=== PATIENT | male | born 1955 | race Caucasian/White ===

== ENCOUNTER 2019-08-04 13:23 | Outpatient (CLI) | payer MEDICARE, SELFPAY ==
[2019-08-04 13:39] LABS: Hematocrit 45.5 % (37.0-46.0); Hemoglobin 15.8 g/dL (12.4-15.3); Mean Corpuscular HGB Conc 34.7 g/dL (32.0-36.0); Mean Corpuscular Hemoglobin 31.2 pg (27.0-31.0); Mean Corpuscular Volume 89.9 fL (78.0-102.0); Platelet Count Result 259 K/mm3 (150-420); Red Blood Count 5.06 M/mm3 (4.70-6.10); Red Cell Distribution Width 12.9 % (11.6-14.4); White Blood Count 7.9 K/mm3 (4.8-10.8)
[2019-08-04 14:42] LABS: Anion Gap 11.5 mmol/L (7-16); Blood Urea Nitrogen 21 mg/dL (7-18); Carbon Dioxide 28 mmol/L (21-32); Chloride 105 mmol/L (98-108); Estimated Glomerular Filt Rate > 60; Glucose 75 mg/dL (70-99); Osmolality Calculated 292 mOsm/kg (285-295); Potassium 4.5 mmol/L (3.5-5.1); Sodium 140 mmol/L (136-145)
[2019-08-04 14:43] LABS: Alanine Aminotransferase 25 U/L (16-63); Alkaline Phosphatase 82 U/L (46-116); Aspartate Amino Transferase 17 U/L (15-37); Bilirubin,Total 0.4 mg/dL (0.00-1.00); Calcium 9.5 mg/dL (8.5-10.1); Cholesterol 177 mg/dL (0-200); HDL Direct 58 mg/dL (40-60); LDL Cholesterol Calculated 102 mg/dL (<130); Triglycerides 86 mg/dL (0-150)
== END 2019-08-04 13:24 | disposition home or self-care (01) ==
LOC: CHSLAB 13:29
PROVIDERS: PCP Family Medicine; Visit Provider Family Medicine
DX: Z72.0 Tobacco use (principal); I25.10 Atherosclerotic heart disease of native coronary artery without angina pectoris
CPT/HCPCS: 36415; 80053; 80061; 85027

== ENCOUNTER 2021-10-10 10:59 | Outpatient (CLI) | payer MEDICARE, SELFPAY ==
--- NOTE | 2021-10-10 11:06 | ECG_ITS ---
Measurements Intervals [place] Rate: 58 P: 86 VA: 146 QRS: 82 QRSD: 117 T: 80 QT: 390 QTc: 384 Interpretive Statements SINUS BRADYCARDIA INCOMPLETE RIGHT BUNDLE BRANCH BLOCK BORDERLINE R WAVE PROGRESSION, ANTERIOR LEADS BASELINE ARTIFACT- I, II, III BORDERLINE ECG Electronically Signed On 10-10-2021 11:24:08 CDT by Carter Zimmer D.O.
[2021-10-10 11:19] LABS: Hematocrit 46.6 % (37.0-46.0); Hemoglobin 15.6 g/dL (12.4-15.3); Mean Corpuscular HGB Conc 33.5 g/dL (32.0-36.0); Mean Corpuscular Volume 92.5 fL (78.0-102.0); Mean Platelet Volume 9.4 fl (8.7-11.0); Platelet Count Result 283 K/mm3 (150-420); Red Blood Count 5.04 M/mm3 (4.70-6.10); White Blood Count 6.8 K/mm3 (4.8-10.8)
[2021-10-10 11:40] LABS: Alanine Aminotransferase 11 U/L (16-63); Albumin Level 3.8 g/dL (3.4-5.0); Alkaline Phosphatase 86 U/L (46-116); Anion Gap 7 mmol/L (8-16); Aspartate Amino Transferase 19 U/L (15-37); Bilirubin,Total 0.5 mg/dL (0.00-1.00); Blood Urea Nitrogen 17 mg/dL (7-18); Calcium 9.5 mg/dL (8.5-10.1); Carbon Dioxide 27 mmol/L (21-32); Chloride 104 mmol/L (98-108); Cholesterol 186 mg/dL (0-200); Estimated Glomerular Filt Rate > 60; Glucose 86 mg/dL (70-99); HDL Direct 65 mg/dL (40-60); LDL Cholesterol Calculated 105 mg/dL (<130); Osmolality Calculated 286 mOsm/kg (285-295); Potassium 4.2 mmol/L (3.5-5.1); Sodium 138 mmol/L (136-145); Total Protein 7.6 g/dL (6.4-8.2); Triglycerides 81 mg/dL (0-150)
== END 2021-10-10 11:00 | disposition home or self-care (01) ==
LOC: CHSLAB 11:06
PROVIDERS: PCP Family Medicine; Visit Provider Family Medicine
DX: Z01.818 Encounter for other preprocedural examination (principal); Z72.0 Tobacco use; Z13.6 Encounter for screening for cardiovascular disorders
CPT/HCPCS: 36415; 80053; 80061; 85027; 93005

== ENCOUNTER 2022-11-17 20:19 | Emergency (ER) | payer MEDICARE, SELFPAY ==
--- NOTE | ~2022-11-17 | XR_ITS ---
Clinical Indication: Dyspnea PA and lateral views of the chest: Comparison: None Findings: The lungs are clear, without evidence of focal consolidation or pleural effusion. COPD juan ramos present. Cardiomediastinal silhouette is within normal limits. Bones and soft tissues are unremar kable. Impression: COPD. Reviewed, dictated and finalized at location . Impression: COPD.
[2022-11-17 20:21] VITALS: BP 173/92; PULSE 69; RESP 16; TEMP 36.7; O2SAT 96
[2022-11-17 20:30] VITALS: PULSE 68; RESP 19; O2SAT 96
[2022-11-17 20:31] VITALS: O2SAT 95
--- NOTE | 2022-11-17 20:31 | ECG_ITS ---
Measurements Intervals [place] Rate: 65 P: 80 NE: 146 QRS: 55 QRSD: 109 T: 70 QT: 371 QTc: 387 Interpretive Statements SINUS RHYTHM INCOMPLETE RIGHT BUNDLE BRANCH BLOCK [90+ ms QRS DURATION, TERMINAL R IN V1/V2, 40+ ms S IN I/aVL/V4/V5/V6] Borderline ECG COMPARED TO ECG 10/10/2021 11:26:04 NO SIGNIFICANT CHANGE Electronically Signed On 11-18-2022 8:16:17 CDT by Tony Max M.D.
[2022-11-17 20:45] VITALS: PULSE 66; RESP 19; O2SAT 94
[2022-11-17 20:53] LABS: Basophils Absolute Auto 0.06 K/mm3 (0.00-0.10); Basophils Percent Auto 0.8 % (0.0-1.0); Eosinophils Absolute Auto 0.28 K/mm3 (0.02-0.50); Eosinophils Percent Auto 3.6 % (1.0-6.0); Hematocrit 42.2 % (37.0-46.0); Hemoglobin 14.5 g/dL (12.4-15.3); Immature Granulocyte Absolute 0.02 K/mm3 (0.00-0.00); Immature Granulocyte Percent A 0.3 % (0.0-0.0); Lymphocytes Absolute Auto 2.28 K/mm3 (1.10-4.50); Lymphocytes Percent Auto 29.6 % (18.0-42.0); Mean Corpuscular HGB Conc 34.4 g/dL (32.0-36.0); Mean Corpuscular Hemoglobin 30.9 pg (27.0-31.0); Mean Platelet Volume 9.4 fl (8.7-11.0); Monocytes Absolute Auto 0.54 K/mm3 (0.10-0.90); Neutrophils Absolute Auto 4.5 K/mm3 (1.7-7.2); Neutrophils Percent Auto 58.7 % (50.0-70.0); Platelet Count Result 257 K/mm3 (150-420); Red Blood Count 4.69 M/mm3 (4.70-6.10); Red Cell Distribution Width 12.9 % (11.6-14.4); White Blood Count 7.7 K/mm3 (4.8-10.8)
[2022-11-17 21:01] VITALS: BP 153/86; PULSE 69; RESP 18; O2SAT 94
[2022-11-17 21:08] LABS: D Dimer 0.27 mg/L (0.19-0.50)
--- NOTE | 2022-11-17 21:11 | ED.SOB ---
HPI - SOB/Dyspnea General Chief Complaint: Shortness of Breath/Dyspnea Stated Complaint: Sob Source: patient and family Mode of arrival: ambulatory Limitations: no limitations History of Present Illness HPI Narrative: this is a 67-year-old gentleman with no significant past medical history presents with some shortness of breath that occurred while he was outdoors on exertion with cough and initially was having some audible wheezing according to himself and family. Patient states that he has had some off and on shortness of breath for over a year, does smoke half a pack a cigarettes daily, denies chest pain no fever chills currently no shortness of breath no audible wheezing no abdominal pain no flank pain. 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 Family History Family History Mother Hypertension Heart disease Father , Age 70 Kidney disease Social History Social History Smoking packs per day: 1 Smoking cigarettes per day: 20.0 Years smoked: 50 Smoking pack-years: 50.00 Tobacco type: cigarettes Alcohol intake: former Substance use: never Living arrangements: with family Additional living arrangements comments: . 2 children Occupation/Education: retired Exam Const: General: no acute distress Nutritional Appearance: well nourished Limitations: no limitations HENMT: Head: normal to inspection Neck: Neck: normal visual inspection and no lymphadenopathy Chest: Chest palpation & inspection: normal inspection of the chest Resp: Effort & Inspection: normal respiratory effort Auscultation: diminished lung sounds Cardio: Rate: regular rate Rhythm: regular rhythm GI: GI Palp: Yes Soft to palpation Auscultation: normal bowel sounds Back/Spine/Pelvis: Back: no CVA tenderness Skin: General skin exam: normal color Rashes: no rashes Neuro: General: patient oriented x3 Speech: normal speech Extrem: General: normal to inspection Psych: Mental Status: mental status grossly normal Affect: normal affect Course Course Emergency Course: Patient had shortness of breath earlier with a coughing spell, currently is not short of breath no audible wheezing no fever chills blood pressure is elevated at 170 3/92 but patient and his state that he gets normal blood pressures at home. Labs reviewed with patient all within normal limits with a negative D-dimer negative troponin, EKG shows a incomplete right bundle branch block. Chest x-ray shows no acute intrapulmonary process although it does show hyperinflation with flattened diaphragm consistent with some emphysema. Vital Signs Vital signs: Vital Signs Temperature 36.7 C 11/17/22 20:21 Pulse Rate 69 11/17/22 20:21 Respiratory Rate 16 11/17/22 20:21 Blood Pressure 173/92 H 11/17/22 20:21 Pulse Oximetry 96 11/17/22 20:21 Oxygen Delivery Room Air 11/17/22 20:21 Temperature 36.7 C 11/17/22 20:21 Pulse Rate 68 11/17/22 20:30 Respiratory Rate 19 11/17/22 20:30 Blood Pressure 173/92 H 11/17/22 20:21 Pulse Oximetry 95 11/17/22 20:31 Oxygen Delivery Room Air 11/17/22 20:31 MDM - SOB/Dyspnea Lab Data 11/17/22 20:50 11/17/22 20:50 Labs: La
[2022-11-17 21:16] LABS: Alanine Aminotransferase 28 U/L (16-63); Albumin Level 3.6 g/dL (3.4-5.0); Alkaline Phosphatase 83 U/L (46-116); Anion Gap 9 mmol/L (8-16); Aspartate Amino Transferase 20 U/L (15-37); Bilirubin,Total 0.3 mg/dL (0.00-1.00); Blood Urea Nitrogen 21 mg/dL (7-18); Calcium 9.2 mg/dL (8.5-10.1); Carbon Dioxide 26 mmol/L (21-32); Chloride 104 mmol/L (98-108); Estimated CRCL calculation 57 ml/min; Estimated Glomerular Filt Rate > 60; Glucose 116 mg/dL (70-99); NT Pro B Type Natriuretic Pept 92 pg/mL (0-125); Osmolality Calculated 292 mOsm/kg (285-295); Potassium 4.1 mmol/L (3.5-5.1); Sodium 139 mmol/L (136-145); Total Protein 7.1 g/dL (6.4-8.2); Troponin I 10.1 ng/L (0.00-60.4)
== END 2022-11-17 21:35 | disposition home or self-care (01) ==
PROVIDERS: Emergency Provider Emergency Medicine; PCP Family Medicine
DX: R06.00 Dyspnea, unspecified (principal); F17.210 Nicotine dependence, cigarettes, uncomplicated
CPT/HCPCS: 36415; 71046; 80053; 83880; 84484; 85025; 85380; 93005; 99284

== ENCOUNTER 2023-10-24 09:50 | Observation (INO) | payer MEDICARE, SELFPAY ==
[2023-10-24] VITALS (13 sets, daily range): BP systolic 124–153; BP diastolic 73–90; PULSE 68–100; RESP 18–35; TEMP 35.8–37.1; O2SAT 91–99; BMI 21.4
--- NOTE | ~2023-10-24 | CT_ITS ---
EXAMINATION: CTA chest PE protocol DATE: 10/24/2023 12:34 INDICATION: Shortness of breath. Cough. TECHNIQUE: Computed tomography angiography (CTA) of the chest was performed with 100 mL Omnipaque-350 intravenous contrast timed to evaluate the pulmonary arteries. Coronal maximum intensity projection 3D-reconstructions were created by the technologist. Automated exposure control and iterative reconst ruction technique were employed. The dose-length product was 239.27 mGy-cm. COMPARISON: None. FINDINGS: There is severe emphysema. There are patchy airspace opacities and tree-in-bud opacities in all lobes, consistent with pneumonia. No pleural effusion. There is mild mediastinal and bilateral h ilar lymphadenopathy, likely reactive. The heart size is normal. No pericardial effusion. There is no pulmonary embolus. There is mild bilateral gynecomastia. There is mild thoracic spondylosis and alejandra re lumbar spondylosis. IMPRESSION: 1. No pulmonary embolus. 2. Multifocal pneumonia. 3. Severe emphysema. 4. Mild mediastinal and bilateral hilar lymphadenopathy, likely reactive. Reviewed, dictated and finalized at location A.
--- NOTE | ~2023-10-24 | XR_ITS ---
EXAMINATION: XR chest 1V portable DATE: 10/24/2023 10:35 INDICATION: Dyspnea on exertion. Cough. TECHNIQUE: A single frontal view of the chest was obtained. COMPARISON: Chest 2 views 11/17/2022 FINDINGS: There are lucencies in the lungs, consistent with emphysema. There are interstitial opaciti es in the mid and lower lung zones. No pleural effusion or pneumothorax. The heart size is normal. IMPRESSION: 1. Interstitial opacities in the mid and lower lung zones, consistent with mild pulmonary edema versu s atypical pneumonia superimposed on emphysema. Reviewed, dictated and finalized at location A. IMPRESSION: 1. Interstitial opacities in the mid and lower lung zones, consistent with mild pulmonary edema versus atypical pneumonia superimposed on emphysema.
--- NOTE | 2023-10-24 09:59 | ECG_ITS ---
[address] Test Date: 2023-10-24 Pat Name: Rush Mckinney Department: Room: Gender: M [employer] Machine [employer]er: : 1955 Requested By: Tony Lynch Order Number: [id number] Reading MD: Carter Zimmer D.O. Measurements Intervals [place] Rate: 98 P: 87 MA: 133 QRS: 85 QRSD: 102 T: 90 QT: 334 QTc: 426 Interpretive Statements SINUS RHYTHM POSSIBLE RIGHT ATRIAL ENLARGEMENT INCOMPLETE RIGHT BUNDLE BRANCH BLOCK BORDERLINE ST-T WAVE ABNORMALITY- INF/HIGH LAT LEADS BASELINE ARTIFACT- I, II, III, AVR, AVL, AVF, V1-V6 BORDERLINE ECG No previous ECG available for comparison Electronically Signed On 10-24-2023 11:21:46 CDT by Carter Zimmer D.O.
[2023-10-24] MEDS: IPRATROPIUM 0.5 MG/ALBUTEROL SULFATE 2.5 MG AMPUL.NEB 3 ML INHALATION ×2 (10:08→18:22)
[2023-10-24 10:28] LABS: Basophils Absolute Auto 0.04 K/mm3 (0.00-0.10); Basophils Percent Auto 0.4 % (0.0-1.0); Eosinophils Absolute Auto 0.12 K/mm3 (0.02-0.50); Eosinophils Percent Auto 1.1 % (1.0-6.0); Hematocrit 42.3 % (37.0-46.0); Hemoglobin 14.4 g/dL (12.4-15.3); Immature Granulocyte Absolute 0.05 K/mm3 (0.00-0.00); Immature Granulocyte Percent A 0.4 % (0.0-0.0); Lymphocytes Percent Auto 9.7 % (18.0-42.0); Mean Corpuscular Hemoglobin 30.1 pg (27.0-31.0); Mean Corpuscular Volume 88.3 fL (78.0-102.0); Mean Platelet Volume 9.6 fl (8.7-11.0); Monocytes Absolute Auto 1.31 K/mm3 (0.10-0.90); Monocytes Percent Auto 11.5 % (2.0-11.0); Neutrophils Absolute Auto 8.75 K/mm3 (1.70-7.20); Neutrophils Percent Auto 76.9 % (50.0-70.0); Platelet Count Result 256 K/mm3 (150-420); Red Blood Count 4.79 M/mm3 (4.70-6.10); Red Cell Distribution Width 12.4 % (11.6-14.4); White Blood Count 11.4 K/mm3 (4.8-10.8)
[2023-10-24] MEDS: methylPREDNISolone SOD SUCC 125 MG VIAL IV PUSH (10:39)
[2023-10-24 10:43] LABS: Partial Thromboplastin Time 27.2 Sec (23.9-30.70); Prothrombin Time 11.3 Seconds (9.50-12.1)
[2023-10-24 10:46] LABS: D Dimer 0.53 mg/L (0.19-0.50)
[2023-10-24 10:48] LABS: Lactic Acid Reflex 1.3 mmol/L (0.4-2.0)
[2023-10-24 10:50] LABS: Influenza A QL RT-PCR Negative (Negative); Influenza B QL RT-PCR Negative (Negative); RSV RNA, RT-PCR Negative (Negative); SARS-CoV-2 RNA PCR Negative (Negative)
[2023-10-24 10:57] LABS: Alanine Aminotransferase 22 U/L (16-63); Alkaline Phosphatase 85 U/L (46-116); Anion Gap 6 mmol/L (4-12); Aspartate Amino Transferase 19 U/L (15-37); Bilirubin,Total 0.9 mg/dL (0.00-1.00); Blood Urea Nitrogen 13 mg/dL (7-18); Calcium 9.3 mg/dL (8.5-10.1); Carbon Dioxide 30 mmol/L (21-32); Chloride 102 mmol/L (98-108); Estimated CRCL calculation 60 ml/min; Estimated Glomerular Filt Rate > 60; Glucose 109 mg/dL (70-99); Magnesium 2.1 mg/dL (1.8-2.4); NT Pro B Type Natriuretic Pept 114 pg/mL (0-125); Osmolality Calculated 287 mOsm/kg (285-295); Sodium 138 mmol/L (136-145); Total Protein 7.7 g/dL (6.4-8.2)
[2023-10-24] MEDS: ALPRAZolam (*CRX) 0.5 MG TABLET 1 MG PO (11:23)
--- NOTE | 2023-10-24 11:24 | PC.NURSE ---
PT HAS RETURNED FROM CT, UNABLE TO HAVE CT COMPLETED DUE TO ANXIETY. PT IS EXTREMELY ANXIOUS UPON RETURN. ERP AND RN AT BEDSIDE. PT HAS AGREED TO TAKING ANXIETY MEDICATION AND RE-ATTEMPTING THE SCAN. IS AT BEDSIDE. PT BEEN EXPLAINED THE BENEFITS AND RISKS OF THE EXAM. WILL CONTINUE TO MONITOR.
--- NOTE | 2023-10-24 12:15 | PC.NURSE ---
PT REPORTS HE IS MUCH MORE CALM AT THIS TIME AND IS WILLING TO ATTEMPT TO CT SCAN. RADIOLOGY NOTIFIED AT THIS TIME. AT BEDSIDE. VSS. PT DENIES ANY NEEDS OR COMPLAINTS. WILL CONTINUE TO MONITOR.
--- NOTE | 2023-10-24 12:43 | ED.SOB ---
HPI - SOB/Dyspnea General Chief Complaint: Shortness of Breath/Dyspnea Stated Complaint: cough and shortness of breath Time Seen by Provider: 10/24/23 09:52 Source: patient and family Mode of arrival: ambulatory Limitations: no limitations History of Present Illness HPI Narrative: this is a 68-year-old male with a history of COPD presents with shortness of breath over the last couple of days with a cough productive of yellow sputum, patient states that he has recently returned from a trip from [place] and developed this cough with shortness of breath with exertion. The patient has been having shortness of breath over the last couple of months with exertion, currently no fever chills O2 sats 93% on room air no chest pain no chest pressure no abdominal pain no fever chills, no nausea vomiting or dysuria. MD elicited complaint: shortness of breath and cough Pertinent past history: COPD Onset (ago): day(s) Context: recent illness Timing: constant Severity: moderate Exacerbating factors: movement Related Data Home Medications Medication Instructions Recorded Confirmed cetirizine 10 mg capsule (All Day 10 mg PO DAILY PRN Allergic 11/22/22 10/24/23 Allergy (cetirizine)) Symptoms Allergies Allergy/AdvReac Type Severity Reaction Status Date / Time Penicillins AdvReac Nausea Verified 10/24/23 09:58 Review of Systems Review of Systems: All systems reviewed & are unremarkable except as noted in HPI and below PMFSH Past Medical History Medical History 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 Family History Family History Mother Hypertension Heart disease Father , Age 70 Kidney disease Social History Social History Smoking packs per day: 1 Smoking cigarettes per day: 20.0 Years smoked: 50 Smoking pack-years: 50.00 Smoking status: Former smoker Tobacco type: cigarettes Alcohol intake: never Substance use: never Do You Feel Safe in your Home?: Yes Lack of Transportation: No Lack of Food: Never True Current Housing: I Have Housing Concerned About Future Housing: No Difficulty Paying Gas/Electric Bills: No Difficulty Paying for Meds: No Currently Unemployed: No Education: Associate Degree Difficulty w/ Childcare or Family Care: No Living arrangements: with family Additional living arrangements comments: . 2 children Occupation/Education: retired Spiritual care concerns: No Exam Const: General: healthy appearing, no acute distress and alert Nutritional Appearance: well nourished Orientation/consciousness: patient oriented x3 Limitations: no limitations HENMT: Head: normal to inspection Eyes: Conjunctivae: conjunctivae normal Chest: Chest palpation & inspection: normal inspection of the chest Resp: Effort & Inspection: normal respiratory effort Auscultation: diminished lung sounds Cardio: Rate: regular rate Rhythm: regular rhythm GI: GI Palp: Yes Soft to palpation Auscultation: normal bowel sounds Back/Spine/Pelvis: Back: no CVA tenderness Skin: General skin exam: normal color Rashes: no rashes Neuro: General: patient oriented x3, moves all extremities, no meningeal signs and no focal motor deficits Extrem: General: normal to inspection, no clubbing, cyanosis or edema and no pedal edema Course Course Emergency Course: Patient with shortness of breath received a dose of 125 Solu-Medrol IV and DuoNeb patient symptoms have improved, a chest x-ray performed shows some atypical pneumonia and patient had an elevated D-dimer and CTA was performed after the patient received 1mg p.o. is a an Axe for panic/anxiety a. Vital Signs V
[2023-10-24] MEDS: levoFLOXacin 500 MG/D5W 100 ML 500 MG/100 ML BAG 100 MG IVPB (13:16)
--- NOTE | 2023-10-24 13:21 | PC.NURSE ---
PT HAS BEEN ACCEPTED FOR ADMISSION TO ROOM 204. PT AND ARE AWARE AND AGREEABLE TO ADMISSION. IV MEDICATION INFUSING ORDERED WITHOUT DIFFICULTY. BELONGINGS LIST COMPLETED.
--- NOTE | 2023-10-24 13:45 | ADMGEN ---
This patient, Rush Mckinney Jr., was admitted to 2nd Floor Room 204-2. Patient/family oriented to hospital policies and general routines including ID bracelet, bed and alarms, visiting hours, pain management, procedures, bathroom and other care routines, personal items, smoking policy, room service/diet, and visiting hours. Information on how to activate the Rapid Response Team has been discussed. Patient/Family are encouraged to report perceived risks to care and to ask questions if they do not understand what they are told or what they should do.
[2023-10-24] MEDS: methylPREDNISolone SOD SUCC 125 MG VIAL 60 MG IV PUSH (20:24)
[2023-10-25] VITALS (11 sets, daily range): BP systolic 116–141; BP diastolic 74–81; PULSE 65–94; RESP 16–20; TEMP 36–36.6; O2SAT 92–98
[2023-10-25] MEDS: IPRATROPIUM 0.5 MG/ALBUTEROL SULFATE 2.5 MG AMPUL.NEB 3 ML INHALATION ×4 (00:11→18:14)
--- NOTE | 2023-10-25 00:17 | PC.NURSE ---
Pt awakened and has had numerous diaphoretic bouts tonight c clothes wet from sweating. His is in room at bedside tonight and states he has changed is shirt once. Some blankets removed from pt. Neb tx given as ordered, he reports feeling somewhat better and sleeping better tonight than at home over last 2 nocs. Pt tolerated tx well.
[2023-10-25 05:12] LABS: Basophils Absolute Auto 0.02 K/mm3 (0.00-0.10); Basophils Percent Auto 0.2 % (0.0-1.0); Hematocrit 37.3 % (37.0-46.0); Hemoglobin 12.6 g/dL (12.4-15.3); Immature Granulocyte Absolute 0.05 K/mm3 (0.00-0.00); Immature Granulocyte Percent A 0.4 % (0.0-0.0); Lymphocytes Absolute Auto 0.93 K/mm3 (1.10-4.50); Lymphocytes Percent Auto 7.8 % (18.0-42.0); Mean Corpuscular HGB Conc 33.8 g/dL (32-36); Mean Corpuscular Hemoglobin 29.2 pg (27.0-31.0); Mean Corpuscular Volume 86.3 fL (78.0-102.0); Mean Platelet Volume 9.6 fl (8.7-11.0); Monocytes Percent Auto 4.2 % (2.0-11.0); Neutrophils Absolute Auto 10.49 K/mm3 (1.70-7.20); Neutrophils Percent Auto 87.4 % (50.0-70.0); Platelet Count Result 268 K/mm3 (150-420); Red Blood Count 4.32 M/mm3 (4.70-6.10); Red Cell Distribution Width 12.4 % (11.6-14.4)
[2023-10-25 05:22] LABS: Anion Gap 13 mmol/L (4-12); Blood Urea Nitrogen 15 mg/dL (7-18); Calcium 9.5 mg/dL (8.5-10.1); Carbon Dioxide 25 mmol/L (21-32); Chloride 102 mmol/L (98-108); Estimated CRCL calculation 59 ml/min; Estimated Glomerular Filt Rate > 60; Glucose 237 mg/dL (70-99); Osmolality Calculated 298 mOsm/kg (285-295); Potassium 3.4 mmol/L (3.5-5.1); Sodium 140 mmol/L (136-145)
--- NOTE | 2023-10-25 07:42 | PM.IMHP ---
H&P: HPI History of Present Illness Date/Time: 10/25/23 07:42 Chief Complaint: Shortness of breath, productive cough Narrative: This is a very pleasant 68-year-old male with no significant past medical history other than history of smoking which he quit 1 year ago who presents to the ER with complaints of shortness of breath, weakness, and productive with green phlegm. The patient provides the following history, supplemented by his who is present. He states that he recently got home from [place] after a trip with his for their 50th anniversary and on his drive home he was very tired and having difficulty staying awake. He states he was having subjective fever and chills. He had a productive cough with green sputum and increasing shortness of breath. He states he had 2 amoxicillin doses at home from a previous mouth surgery. He took both of those tablets and was starting to feel better. The following day he was feeling worse and having severe shortness of breath with exertion so he presented to the ER. He states that he is an active josiah in usually works out at the gym a few times a week. He says that he can normally run 3 miles and 45 minutes on the treadmill and not get short of breath but then sometimes cannot carry a gallon of milk into the house without getting short of breath. His states that he has a follow-up appointment with Dr. Estrada oliveros scheduled for Saturday and they are hoping to speak with him about having pulmonary function test done to see if he has a diagnosis of COPD. He has had progressive shortness of breath over the last year. He has an albuterol inhaler at home which he has used this last week. In the ER labs were significant for a white count of 11, neutrophils 87.4, potassium 3.4, glucose 109, lactic 1.3, D-dimer 0.53, and upper respiratory panel negative. Due to elevated D-dimer patient had chest CTA which shows no pulmonary embolism and multifocal pneumonia with severe emphysema. There are also mild mediastinal and bilateral hilar lymphadenopathy likely reactive. Patient was started on IV steroids and Levaquin with nebulizers and admitted in this setting for treatment of pneumonia and probable COPD exacerbation. 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 Family History Family History Mother Hypertension Heart disease Father , Age 70 Kidney disease Social History Social History Smoking packs per day: 1 Smoking cigarettes per day: 20.0 Years smoked: 50 Smoking pack-years: 50.00 Smoking status: Former smoker Tobacco type: cigarettes Alcohol intake: never Substance use: never Do You Feel Safe in your Home?: Yes Lack of Transportation: No Lack of Food: Never True Current Housing: I Have Housing Concerned About Future Housing: No Difficulty Paying Gas/Electric Bills: No Difficulty Paying for Meds: No Currently Unemployed: No Education: Associate Degree Difficulty w/ Childcare or Family Care: No Living arrangements: with family Additional living arrangements comments: . 2 children Occupation/Education: retired Spiritual care concerns: No Meds Home Medications and Allergies Home Medications Medication Instructions Recorded Confirmed Type cetirizine 10 mg capsule (All Day 10 mg PO DAILY PRN Allergic 11/22/22 10/24/23 History Allergy (cetirizine)) Symptoms albuterol sulfate 90 mcg/actuation See Rx Instructions .Route 08/19/23 10/24/23 Rx aerosol inhaler .COMPLEX #7 ea
[2023-10-25] MEDS: POTASSIUM CHLORIDE 20 MEQ ER TABLET 40 MEQ PO (08:59)
[2023-10-25] MEDS: ENOXAPARIN 40 MG/0.4 ML SYRINGE SUB-Q (09:00)
[2023-10-25] MEDS: methylPREDNISolone SOD SUCC 125 MG VIAL 60 MG IV PUSH (09:01)
[2023-10-25] MEDS: levoFLOXacin 500 MG/D5W 100 ML 500 MG/100 ML BAG 100 MG IVPB (12:57)
[2023-10-25] MEDS: methylPREDNISolone SOD SUCC 125 MG VIAL 40 MG IV PUSH (21:43)
[2023-10-25] MEDS: guaiFENesin 12 HR 600 MG TABCR 1200 MG PO (21:43)
[2023-10-26] VITALS: BP 124/74; PULSE 88; RESP 16; TEMP 36.6; O2SAT 95
[2023-10-26 00:28] VITALS: PULSE 79; RESP 18; O2SAT 96
[2023-10-26] MEDS: IPRATROPIUM 0.5 MG/ALBUTEROL SULFATE 2.5 MG AMPUL.NEB 3 ML INHALATION ×2 (00:28→06:16)
[2023-10-26 00:36] VITALS: PULSE 79; RESP 18; O2SAT 96
[2023-10-26 05:54] LABS: Hematocrit 37.5 % (37.0-46.0); Hemoglobin 12.6 g/dL (12.4-15.3); Mean Corpuscular HGB Conc 33.6 g/dL (32-36); Mean Corpuscular Hemoglobin 29.4 pg (27.0-31.0); Mean Corpuscular Volume 87.6 fL (78.0-102.0); Mean Platelet Volume 9.8 fl (8.7-11.0); Platelet Count Result 314 K/mm3 (150-420); Red Blood Count 4.28 M/mm3 (4.70-6.10); Red Cell Distribution Width 12.8 % (11.6-14.4)
[2023-10-26 05:59] LABS: White Blood Count 23.3 K/mm3 (4.8-10.8)
[2023-10-26 06:10] LABS: Alanine Aminotransferase 28 U/L (16-63); Albumin Level 2.4 g/dL (3.4-5.0); Alkaline Phosphatase 78 U/L (46-116); Anion Gap 10 mmol/L (4-12); Aspartate Amino Transferase 19 U/L (15-37); Bilirubin,Total 0.2 mg/dL (0.00-1.00); Blood Urea Nitrogen 18 mg/dL (7-18); Calcium 9.4 mg/dL (8.5-10.1); Carbon Dioxide 27 mmol/L (21-32); Chloride 104 mmol/L (98-108); Estimated CRCL calculation 60 ml/min; Estimated Glomerular Filt Rate > 60; Glucose 148 mg/dL (70-99); Magnesium 2.1 mg/dL (1.8-2.4); Osmolality Calculated 296 mOsm/kg (285-295); Sodium 141 mmol/L (136-145); Total Protein 6.6 g/dL (6.4-8.2)
[2023-10-26 06:13] LABS: Band Neutrophils Percent 0 % (0-6); Lymphocytes Absolute Manual 1.39 K/mm3 (1.1-4.5); Lymphocytes Percent Manual 6 % (18-44); Monocytes Absolute Manual 0.93 K/mm3 (0.1-0.90); Monocytes Percent Manual 4 % (3-9); Neutrophils Absolute Manual 20.97 K/mm3 (1.3-6.7); Neutrophils Percent Manual 90 % (46-73); Platelet Estimate Adequate (Adequate); Schistocytes None Seen; Total Cells Counted 100
[2023-10-26 06:14] VITALS: PULSE 77; RESP 16; O2SAT 96
[2023-10-26 06:27] VITALS: PULSE 77; RESP 16; O2SAT 98
[2023-10-26 08:00] VITALS: BP 140/78; PULSE 87; RESP 18; TEMP 36.2; O2SAT 96
--- NOTE | 2023-10-26 08:51 | PM.DS ---
DS: Admitting Diagnosis Discharge Date 10/26/2023 Admitting Diagnosis Pneumonia DS: Discharge Diagnosis Discharge Diagnosis (1) COPD exacerbation: Code(s): J44.1 - Chronic obstructive pulmonary disease with (acute) exacerbation Status: Acute (2) Pneumonia: Qualifiers: Laterality: unspecified laterality Lung location: unspecified part of lung Pneumonia type: due to unspecified organism Qualified Code(s): J18.9 - Pneumonia, unspecified organism Code(s): J18.9 - Pneumonia, unspecified organism Status: Acute DS: Summary Hospital Course Reason for hospitalization: Pneumonia, COPD Exacerbation Hospital Course: This is a very pleasant 68-year-old male with no significant past medical history other than history of smoking which he quit 1 year ago who presents to the ER with complaints of shortness of breath, weakness, and productive with green phlegm. Patient was not able to give a phlegm as he explained he has not had any since he came into the hosptial. Patient states he is feeling a lot better and feel stable enough to go home. When I arrived pateint is sitting in chair with his clothes and bags packed as he states he is ready to go home. Patient states his only issue is when he goes into his coughing spells and then he feels short of breath but at this time he is feeling well. I have ordered medication for a cough at home and antibiotics. Patient states he has a inhaler at home with refills and denies needing any more . Patient is eating and drinking without difficulties he has remained afebrile and I will plan for discharge at this time with follow up with his pcp Time Spent with Patient Time attestation: Total time spent providing and/or coordinating discharge services: Exam Narrative: General: well appearing, appears stated age. HEENT: normocephalic, atraumatic. Mucous membranes moist. EOMI, PERRLA, bilateral sclera anicteric, no conjunctival injection. Neck supple without JVD, lymphadenopathy, or bruit. Respiratory: clear to auscultation but diminished bilaterally. No rales/rhonic/wheezes. Cardiovascular: Regular rate and rhythm, normal S1-S2 upon auscultation. No murmurs, rubs, or clicks. PMI is nondisplaced, capillary refill less than 3 second. Abdomen: Soft, round, no pulsatile masses, nondistended and nontender. No rebound, no guarding. No CVA tenderness, no hepatosplenomegaly. Bowel sounds present to all four quadrants. No high pitch or tinkling sounds, resonant to percussion. Extremities: No cyanosis, clubbing, or edema present. Pulses are palpable 2/2. Active ROM to all four extremities. Neuro: Alert and orientated x 4. PERRLA. Cranial nerves 2-12 intact without focal deficit. Skin: Warm, dry, and intact, without rash, erythema, or lesion. Lines: Incisions: Psych: pleasant, cooperative, normal speech, normal affect, no hallucinations, no dysarthria DS: Data Data Completed and Pending Labs on day of discharge: Labs from last 24 hours 10/26/23 05:37 WBC 23.3 H* RBC 4.28 L Hgb 12.6 Hct 37.5 MCV 87.6 MCH 29.4 MCHC 33.6 RDW 12.8 Plt Count 314 MPV 9.8 Immature Gran % (Auto) Not Reportable Neut % (Auto) Not Reportable Lymph % (Auto) Not Reportable [place] % (Auto) Not Reportable Eos % (Auto) Not Reportable Baso % (Auto) Not Reportable Lymph # (Auto) Not Reportable [place] # (Auto) Not Reportable Eos # (Auto) Not Reportable Baso # (Auto) Not Reportable Abs Immat Gran (auto) Not Reportable Absolute Neuts (auto) Not Reportable Absolute Nucleated RBC Not Reportable Total Counted 100 Neutrophils % (Manual) 90 H Band Neutrophils % 0 Lymphocytes % (Manual) 6 L Monocytes % (Manual) 4 Nucleated RBC % Not Reportable Abs Neuts (Manual) 20.97 H Abs Lymphs (Manual) 1.39 Abs Monocytes (Manual) 0.93 H Platelet Estimate Adequate Schistocytes None seen Sodium 141 Potassium 4.0 Chloride 104 Carbon Dioxide 27 Anion Gap 10 BUN 18 Creatini
[2023-10-26] MEDS: guaiFENesin 12 HR 600 MG TABCR 1200 MG PO (09:01)
--- NOTE | 2023-10-26 09:35 | PC.NURSE ---
discharge instructions reviewed with patient and his . All questions answered. Pt ambulated independently with out of hospital.
--- NOTE | 2023-10-29 09:13 | PC.NURSE ---
Dich[place]vin call back attempted, no answer
--- NOTE | 2023-10-30 09:19 | PC.NURSE ---
discharge call back attempted, no answer
--- NOTE | 2023-10-31 09:43 | PC.NURSE ---
Unable to reach for dc call back
== END 2023-10-26 09:35 | disposition home or self-care (01) ==
LOC: CHSED 13:03 → CHS2ND 13:09
PROVIDERS: Nurse Practitioner Acute Care; Nurse Practitioner Family; Admitting Provider Internal Medicine; Emergency Provider Emergency Medicine; PCP Family Medicine; Visit Provider Internal Medicine
DX: J44.0 Chronic obstructive pulmonary disease with (acute) lower respiratory infection (principal); J18.9 Pneumonia, unspecified organism; J44.1 Chronic obstructive pulmonary disease with (acute) exacerbation; J43.9 Emphysema, unspecified; Z87.891 Personal history of nicotine dependence; Z79.51 Long term (current) use of inhaled steroids; Z20.822 Contact with and (suspected) exposure to COVID-19
CPT/HCPCS: 36415; 71045; 71275; 80048; 80053; 83605; 83735; 83880; 84484; 85025; 85380; 85610; 85730; 87040; 87637; 93005; 94640; 96365; 96366; 96372; 96375; 96376; 99285; A9270; G0378; J1650; J1956; J2919; Q9967

== ENCOUNTER 2023-10-31 13:46 | Outpatient (CLI) | payer MEDICARE, SELFPAY ==
[2023-10-31 14:04] LABS: Basophils Absolute Auto 0.06 K/mm3 (0.00-0.10); Basophils Percent Auto 0.5 % (0.0-1.0); Eosinophils Absolute Auto 0.59 K/mm3 (0.02-0.50); Eosinophils Percent Auto 4.7 % (1.0-6.0); Hematocrit 42.9 % (37.0-46.0); Hemoglobin 14.6 g/dL (12.4-15.3); Immature Granulocyte Absolute 0.37 K/mm3 (0.00-0.00); Immature Granulocyte Percent A 2.9 % (0.0-0.0); Lymphocytes Absolute Auto 2.73 K/mm3 (1.10-4.50); Lymphocytes Percent Auto 21.7 % (18.0-42.0); Mean Corpuscular Hemoglobin 30.4 pg (27.0-31.0); Mean Corpuscular Volume 89.2 fL (78.0-102.0); Mean Platelet Volume 9.1 fl (8.7-11.0); Monocytes Absolute Auto 1.15 K/mm3 (0.10-0.90); Monocytes Percent Auto 9.1 % (2.0-11.0); Neutrophils Percent Auto 61.1 % (50.0-70.0); Platelet Count Result 343 K/mm3 (150-420); Red Blood Count 4.81 M/mm3 (4.70-6.10); Red Cell Distribution Width 12.6 % (11.6-14.4); White Blood Count 12.6 K/mm3 (4.8-10.8)
== END 2023-10-31 13:47 | disposition home or self-care (01) ==
LOC: CHSLAB 13:49
PROVIDERS: PCP Family Medicine; Visit Provider Family Medicine
DX: J44.1 Chronic obstructive pulmonary disease with (acute) exacerbation (principal)
CPT/HCPCS: 36415; 85025

== ENCOUNTER 2024-08-11 13:26 | Outpatient (CLI) | payer MEDICARE, SELFPAY ==
--- OUTSIDE RECORDS SUMMARY | 2024-08-11 15:05 | XMS_ITS | Clinical Summary ---
Author Organization [facility] [address] [facility] Address [address] [place] [address] Care Team Providers Care High Scaler Name Role Phone Manuel Kay MD Primary Care Provider [phone] Allergies Active Allergy Reactions Criticality Noted Date Comments Penicillins Medications No known medications Active Problems Problem Noted Date Diagnosed Date Refused influenza vaccine 02/05/2019 Assessment & Plan (02/05/2019 5:59 PM CDT): Discussed and the patient refuses immunization today. Educated regarding the need to vaccinate for personal protection and to limit the viruses in the community to protect those most vulnerable. Pre-operative clearance 02/05/2019 Assessment & Plan (02/05/2019 5:58 PM CDT): EKG ordered but EKG not working at this time (software being downloaded at time of appointment). Will rtc tomorrow approx 9am for EKG to complete pre-op clearance. No contraindications for L cataract surgery at this time; pending EKG results. Body mass index (BMI) of 19.0 to 19.9 in adult 0 02/05/2019 Assessment & Plan (02/05/2019 5:59 PM CDT): Discussed healthy diet and importance of regular physical activity. BMI is acceptable for this patient. Age-related cataract of left eye 02/05/2019 Assessment & Plan (02/05/2019 5:59 PM CDT): Cataract surgery with Dr Naik 02/19/19 at [facility]. Body mass index (BMI) less than 19 in adult 07/2018 Assessment & Plan (09/26/2018 1:16 PM CDT): Discussed healthy diet and importance of regular physical activity. Blood pressure elevated without history of HTN 0 09/26/2018 Assessment & Plan (09/26/2018 1:16 PM CDT): Has not been seen in clinic since 2010. States that he's never been told he's had high blood pressure. Reminded him he's not been seen since 2010. The blood pressure is not under control. Ideally it should be under 130/80. Reviewed diet/activity: efforts to eat well (4-5 fruits and veggies) daily and exercise for about 30 min nearly every day. Watch salt intake, keeping to less than 2000mg per day. Limit alcohol. To rtc in 4 wks re: BP check. Will check at home. To rtc sooner if no change in BP. Labs ordered today; will contact w/results once received. Encounter for medical examination to establish c are 09/26/2018 Assessment & Plan (09/26/2018 1:19 PM CDT): 1. Eat a healthy diet: focus on lean meats and proteins, more fruits, vegetables and whole grains and low in sugars and fats. Limit red meat and avoid processed meat. 2. Maintain a healthy weight; avoid being overweight. Aim for a normal body mass index (BMI) of 18.5-24.9. Help learning to eat healthier, we can set up appointment with prep cook/bereavement coordinator. 3. Have an active lifestyle, strive for 30 minutes of moderate exercise 5 times a week and strength or resistance training at least twice a week. 4. Use broad-spectrum (UVA+UVB) sunscreen with SPF 30 or greater, is water resistant, limit time spent in the sun (10 am-4pm), wear hat, wear UV protective clothing, wear sunglasses. Never use a tanning bed. Skin that was irradiated may be more sensitive over your lifetime. 5. Do not smoke or chew tobacco; participate in a smoking cessation program. 6. Limit alcohol intake, 1 drink per day for a woman and 2 drinks per day for a man. Encounter for screening for lipoid disorders 07/2018 Assessment & Plan (09/26/2018 1:19 PM CDT): Lipid panel ordered; will call w/results when received. Reviewed diet/exercise recommendations. Colon cancer screening 09/26/2018 Assessment & Plan (09/26/2018 1:17 PM CDT): Referral to Dr Vasquez's office. Aware that they will call him to set up CRC screening. Cough 09/26/2018 Assessment & Plan (09/26/2018 1:18 PM CDT): You will need to take OTC medications Mucinex for chest congestion Sudafed for nasal/head congestion Antihistamine for nasal drainage Drink plenty of fluids to stay hydrated Get plenty of rest Medrol dose pack sent for cough & occasional wheezing. Stressed need to STOP smoking Tobacco dependence due to cigarettes 09/26/2018 Assessment & Plan (02/05/2019 5:59 PM CDT): Active. Encouraged complete smoking cessation. Discussed different types of medications & tcvl-flp-psktdqd aides to help with cessation. Would like to trial chantix. Aware to start medication 1 wk before start date. Plan to take 12 weeks initially and then another 12 weeks for maintenance. Reviewed medication side effects and scheduling. Aware to call for refills before start pack is completed to assure no interruption in medications. Reviewed red flags. Will start after cataract surgery completed/healed. Assessment & Plan (09/26/2018 1:22 PM CDT): Tobacco use is stable. Smoking cessation counseling was provided. Tobacco use will be reassessed at the next regular appointment. Precontemplative. Encouraged complete smoking cessation. Discussed different types of medications & mund-fmj-tbiehth aides to help with cessation. Immunizations Immunization Administration Dates Next Due Influenza, Unspecified 02/05/2019(Deferr ed: Patient Refused),05/27/2018(Deferred: Patient Refused),05/27/2017(Deferred: Patient Refused) Family History Medical History Relation Name Comments Allergic rhinitis Brother Colon cancer Father Other Father colon ca; Hypertension Mother No Known Problems Sister Relation Name Status Comments Brother Alive Father Mother Alive Sister Alive Social History Tobacco Use Types Packs/Day Years Used Date Smoking Tobacco: Heavy Smoker Cigarettes 0.5 46 Smokeless Tobacco: Current Tobacco Cessation:Ready to Q uit: No; Counseling Given: Yes Alcohol Use Standard Drinks/Week Comments Not Currently 0 (1 standard drink = 0.6 oz pur e alcohol) PHQ-2 Answer Date Recorded PHQ-2 Score 0 01/16/2019 Sex and Gender Information Value Date Recorded Sex Assigned at Not on file 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 Gender Identity Not on file Sexual Orientation Not on file Obstetrics History Last Filed Vital Signs Vital Sign Reading Time Taken Comments Blood Pressure 110/88 02/05/2019 4:09 PM CDT Pulse 65 02/05/2019 4:09 PM CDT Temperature 36.7 C (98.1 F) 02/05/2019 4:09 PM CDT Respiratory Rate 16 02/05/2019 4:09 PM CDT Oxygen Saturation 99% 02/05/2019 4:09 PM CDT Inhaled Oxygen Concentration - - Weight 64.9 kg (143 lb) 02/05/2019 4:09 PM CDT Height 181.6 cm (5' 11.5 ) 02/05/2019 4:09 PM CD T Body Mass Index 19.67 02/05/2019 4:09 PM CDT Plan of Treatment Not on file Insurance MEDICARE [employer] [facility] Care Teams High Scaler Relationship Specialty Start Date End Date Manuel Kay MD [address] [place] [id number] PCP - General 09/29/10
--- OUTSIDE RECORDS SUMMARY | 2024-08-11 15:05 | XMS_ITS | Referral Summary ---
Author Organization [facility] [address] [facility] Address [address] [place] [address] Care Team Providers Care Vice Principal Name Role Phone Manuel Kay MD Primary Care Provider [phone] Allergies Active Allergy Reactions Criticality Noted Date [...] Cataract surgery with Dr Naik 02/19/19 at [facility]. Body mass index (BMI) less than 19 [...] healthier, we can set up appointment with auto leasing manager/spanish lecturer. 3. Have an active lifestyle, strive for [...] cessation. Discussed different types of medications & uwwy-lmw-eftlahf aides to help with cessation. Would like [...] cessation. Discussed different types of medications & zydd-jul-grpwmcy aides to help with cessation. 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
== END 2024-08-11 13:27 | disposition home or self-care (01) ==
LOC: CHSLAB 13:30
PROVIDERS: PCP Family Medicine; Visit Provider Specialist
DX: L57.0 Actinic keratosis (principal)
CPT/HCPCS: 88305